=== PATIENT | male | born 1995 | race Caucasian/White ===

== ENCOUNTER 2020-10-26 10:23 | Emergency (ER) | payer SELFPAY ==
[2020-10-26] MEDS ORDERED: ERYTHROMYCIN O3.5 GM OD (11:30)
[2020-10-26 11:45] VITALS: BP 124/63
== END 2020-10-26 11:45 | disposition home or self-care (01) | DRG 125 ==
LOC: ED 10:23
DX: H00.012 Hordeolum externum right lower eyelid (principal); F17.210 Nicotine dependence, cigarettes, uncomplicated

== ENCOUNTER 2021-10-19 13:16 | Emergency (ER) | payer SELFPAY ==
[~2021-10-19] VITALS: Ht 172.7 cm; Wt 113.0 kg
[~2021-10-19 13:16] MED LIST: ERYTHROMYCIN O3.5 GM OD
[2021-10-19 13:25] VITALS: BP 103/54
[2021-10-19 14:10] VITALS: BP 103/54
[2021-10-19] MEDS ORDERED: ZPAK PO (14:14)
== END 2021-10-19 14:25 | disposition home or self-care (01) | DRG 153 ==
LOC: ED 13:16
DX: J06.9 Acute upper respiratory infection, unspecified (principal); F17.210 Nicotine dependence, cigarettes, uncomplicated; Z20.822 Contact with and (suspected) exposure to COVID-19